=== PATIENT | male | born 1940 | race Hispanic/Latino ===

== ENCOUNTER 2018-02-28 05:59 | Day surgery (SDC) | payer MEDICARE ==
[2018-02-18 11:32] VITALS: BMI 24.6
[2018-02-28] MEDS ORDERED: cefTRIAXone 1 gm 1 GM/100 ML BAG IVPB ONE (07:39)
[2018-02-28] MEDS ORDERED: Lidocaine 2% Jelly (Uro-Jet) ONE (07:40)
[2018-02-28] MEDS ORDERED: Iohexol 240 (50 ml) ONE (07:40)
[2018-02-28] MEDS ORDERED: Midazolam 2 MG/2 ML VIAL ONE (07:51)
[2018-02-28] MEDS ORDERED: Propofol 10 mg/ml Inj (20 ML) ONE (07:52)
[2018-02-28] MEDS ORDERED: Succinylcholine Chloride 20 mg/ml Syr (5 ml) IV ONE (08:55)
--- NOTE | 2018-02-28 09:36 | PCM.SURG1 ---
Surgeon's Initial Post Op Note - Surgeon's Notes Surgeon: Anand Parker Scale Tank Operator: none Type of Anesthesia: General Endo Pre-Operative Diagnosis: Hematuria Operative Findings: Bladder tumors - BN floor, L BN, L Trigone. Enlarged prostate Post-Operative Diagnosis: same Operation Performed: cysto,. TUR-BN. TUR-BT. EUA Specimen/Specimens Removed: urine. BT. BN Estimated Blood Loss: EBL {In ML}: 10 Blood Products Given: N/A Post-Op Condition: Good Date of Surgery/Procedure: 02/28/18 Time of Surgery/Procedure: 09:25
[2018-02-28] MEDS: HYDROmorphone 0.5 mg/0.5 ml ISec IVP PRN ×2 (09:40→10:13)
[2018-03-01 00:12] VITALS: BP 136/67; PULSE 66; RESP 16; TEMP 97.8; O2SAT 100
--- NOTE | 2018-03-01 09:42 | RAD ---
Date of service: 02/28/2018 HISTORY: HEMATURIA COMPARISON: None available. FINDINGS: BOWEL: Greater right-sided mildly distended small bowel loops noted measuring between 3.2 and 3.4 cm in maximum dimension. Gas in nonspecific colon loops left and right. BONES: Thoraco lumbar spondylosis. Lumbosacral transitional elements suggested. Bilateral hip arthrosis. Inferior facet hypertrophic arthrosis. OTHER FINDINGS: Bilateral hemipelvic apparent phleboliths. Some mottled stool and mildly distended small bowel loops impede urolithiasis evaluation. IMPRESSION: No urolithiasis appreciated. The pelvic findings are believe most consistent with phleboliths. Right sided small bowel loops mildly distended-partial small-bowel obstruction versus focal small bowel ileus here are some considerations. Clinical correlation and follow-up is recommended. Comments: Study marked for PA review .
--- NOTE | 2018-03-06 01:34 | OP ---
PROCEDURE DATE: 02/28/2018 UROLOGY OPERATIVE REPORT PREOPERATIVE DIAGNOSES: 1. Hematuria. 2. Elevated prostate-specific antigen. POSTOPERATIVE DIAGNOSES: 1. Hematuria. 2. Bladder tumor. PROCEDURES: 1. Cystoscopy. 2. Transurethral resection of bladder tumor. 3. Transurethral resection of bladder neck. 4. Exam under anesthesia. PROCEDURE FOLLOWS: The patient was placed in lithotomy position. Perioperative antibiotics were administered. Anesthesia was provided by the anesthesiologist. A 22-Portuguese cystoscope sheath was introduced under direct vision. Urethra, prostate, and bladder were inspected with 30-degree and 70-degree lenses. FINDINGS: There was no stricture in the anterior urethra. There was evidence of lateral lobe prostatic hypertrophy as well as small middle lobe at the bladder neck. There was no stricture in the anterior urethra. There were no mucosal lesions within the prostatic urethra. There were multiple bladder tumors within the bladder. There was a large bladder tumor with papillary well-differentiated tumor involving the left floor of the bladder and trigone. Additionally, there was a bladder tumor at the bladder neck predominantly on the left. This too was a papillary tumor. The anterior wall of the bladder and lateral wall of the bladder demonstrated no tumor. The right ureteral orifice was normal in position and shape. The left ureteral orifice could not be identified and was obscured by the tumor. The cystoscope and sheath were removed. A 26-Portuguese continuous flow resectoscope sheath was introduced under direct vision using the visual obturator. The resectoscope was inserted. Resection of the bladder tumors was performed. The tumors were individually resected. The bladder neck was resected as well in order to resect the bladder tumor and also and in order to gain access to the tumor of the left trigone. The tumors were fully resected. The bases of the tumor were resected as well. Hemostasis was achieved after each section of resection. The resectoscope was reinserted. There was no bleeding noted. There was no residual tumor noted. The resectoscope and sheath were removed. Mar catheter was inserted. Bladder drainage was clear. Bladder irrigation was clear. Exam under anesthesia was performed. There was no abnormal pelvic mass, fixation or induration. Prostate was approximately 40 g in size and demonstrated mild firmness and mild induration, without fixation or nodularity. The patient was returned to supine position. The patient tolerated the procedure without complication. Ilene MD Keith
== END 2018-02-28 14:55 | disposition home or self-care (01) ==
LOC: C.SDS 05:59
PROVIDERS: ATTEND Urology
DX: R31.0 Gross hematuria (principal); D49.4 Neoplasm of unspecified behavior of bladder
CPT/HCPCS: 53899; 74018; 87086; 88104; 88305; A4322; C1758; J0696; J1170; J2405; J7040

== ENCOUNTER 2018-03-02 14:22 | Emergency (ER) | payer MEDICARE ==
[2018-03-02 14:22] VITALS: BMI 24.6
[2018-03-02 14:31] VITALS: PULSE 81; RESP 18; TEMP 97.6; O2SAT 100
--- NOTE | 2018-03-02 14:46 | C.PDOC ---
History Of Present Illness 78 y/o male pt presents to the ER to take out his urinary catheter. Pt reports he has an enlarged prostate and heavy hematuria. Pt received cystoscopy from Dr. Parker 2 days ago and was discharged with a urinary catheter. Pt was advised by Dr. Parker's to have his catheter removed today but the office is closed. Pt notes his urinary flow is clear. Associated sx is mild nausea and mild left lower abdominal discomfort. Pt denies fever, chills and vomiting. Time Seen by Provider: 03/02/18 14:36 Chief Complaint (Nursing): Male Genitourinary History Per: Patient History/Exam Limitations: no limitations Onset/Duration Of Symptoms: Days Current Symptoms Are (Timing): Still Present Past Medical History Reviewed: Historical Data, Nursing Documentation, Vital Signs Vital Signs: Last Vital Signs Temp 97.6 F 03/02/18 14:26 Pulse 81 03/02/18 14:26 Resp 18 03/02/18 14:26 BP 173/85 H 03/02/18 14:26 Pulse Ox 100 03/02/18 14:26 - Medical History PMH: Gall Bladder Disease Surgical History: Cholecystectomy - [facility] Procedures DILATION OF AMPULLA OF VATER, ENDO (10/28/15) EXCISION OF STOMACH, ENDO, DIAGN (10/28/15) ULTRASONOGRAPHY OF HEPATOBILIARY SYSTEM, ALL (10/28/15) Family History: States: Unknown Family Hx - Social History Hx Alcohol Use: No Hx Substance Use: No - Immunization History Hx Tetanus Toxoid Vaccination: No Hx Influenza Vaccination: No Hx Pneumococcal Vaccination: No Review Of Systems Constitutional: Positive for: Other (removal of urinary catheter ). Negative for: Fever, Chills Gastrointestinal: Positive for: Nausea, Abdominal Pain (lower). Negative for: Vomiting Physical Exam - Physical Exam Appears: Non-toxic, No Acute Distress Skin: Normal Color, Warm, Dry Head: Normacephalic Eye(s): bilateral: Normal Inspection, EOMI Chest: Symmetrical, No Deformity Cardiovascular: Rhythm Regular Respiratory: Normal Breath Sounds Gastrointestinal/Abdominal: Soft, No Tenderness, No Distention Back: No CVA Tenderness Extremity: Normal ROM (x4) Neurological/Psych: Oriented x3, Normal Speech, Normal Cognition Gait: Steady ED Course And Treatment O2 Sat by Pulse Oximetry: 100 (RA) Pulse Ox Interpretation: Normal Medical Decision Making Medical Decision Making: Impression: request removal of urinary catheter Plans: -- urinary catheter removal Disposition Counseled Patient/Family Regarding: Diagnosis, Need For Followup - Disposition Referrals: Ilene Parker MD [Staff Provider] - Disposition: HOME/ ROUTINE Disposition Time: 14:59 Condition: IMPROVED Instructions: Mar Catheter, Male Forms: [facility] [employer] (Norwegian) - Clinical Impression Clinical Impression: Encounter for Mar catheter removal - Scribe Statement The provider has reviewed the documentation as recorded by the Caesaribradha Ken Do Provider Attestation: All medical record entries made by the Caesaribe were at my direction and personally dictated by me. I have reviewed the chart and agree that the record accurately reflects my personal performance of the history, physical exam, medical decision making, and the department course for this patient. I have also personally directed, reviewed, and agree with the discharge instructions and disposition.
[2018-03-02 15:07] VITALS: BP 138/67
== END 2018-03-02 15:06 | disposition home or self-care (01) ==
LOC: C.ER 14:22
DX: Z46.6 Encounter for fitting and adjustment of urinary device (principal)

== ENCOUNTER 2018-07-17 07:52 | Outpatient (CLI) | payer MEDICARE | END 2018-07-17 07:53 | disposition home or self-care (01) | LOC: C.LAB 07:52 ==

== ENCOUNTER 2018-07-19 06:41 | Day surgery (SDC) | payer MEDICARE ==
[2018-07-15 12:32] VITALS: BMI 25.1
[2018-07-19 07:04] VITALS: RESP 18
[2018-07-19] MEDS ORDERED: Iohexol 240 (50 ml) ONE (09:11)
[2018-07-19] MEDS ORDERED: cefTRIAXone 1 gm 1 GM/100 ML BAG IVPB ONE (09:11)
[2018-07-19] MEDS ORDERED: Lidocaine 2% Jelly (Uro-Jet) ONE (09:11)
[2018-07-19] MEDS ORDERED: Midazolam 2 MG/2 ML VIAL ONE (09:19)
[2018-07-19] MEDS ORDERED: Propofol 10 mg/ml Inj (20 ML) ONE (09:23)
[2018-07-19] MEDS ORDERED: Lactated Ringer's 1,000 ML IV SCH (10:30)
[2018-07-19] MEDS ORDERED: HYDROmorphone 0.5 mg/0.5 ml ISec IVP PRN (10:30)
--- NOTE | 2018-07-19 10:32 | PCM.SURG1 ---
Surgeon's Initial Post Op Note - Surgeon's Notes Surgeon: Anand Parker Bunghole Borer: none Type of Anesthesia: General LMA Pre-Operative Diagnosis: bladder ca. prostate ca Operative Findings: bladder tumor Post-Operative Diagnosis: same Operation Performed: cysto. rtg pyelogram. tur-bt. tur-bn. eua Specimen/Specimens Removed: urine. janis almonte Estimated Blood Loss: EBL {In ML}: 0 Blood Products Given: N/A Post-Op Condition: Good Date of Surgery/Procedure: 07/19/18 Time of Surgery/Procedure: 10:15
[2018-07-19 11:45] VITALS: BP 112/67; PULSE 58; TEMP 97; O2SAT 100
--- NOTE | 2018-07-19 18:57 | RAD ---
Date of service: 07/19/2018 PROCEDURE: Intraoperative Fluoroscopy. HISTORY: BLADDER CA. FINDINGS: Fluoroscopic assistance was provided for retrograde. Please refer to the operative report from Dr. RAMIRES, HOP BOTTOM. Total fluoroscopic time (continuous mode) utilized during the procedure 4.8 seconds. Dose report: DLP [id number] (mGy/m2)
--- NOTE | 2018-07-21 05:58 | OP ---
PROCEDURE DATE: 07/19/2018 PREOPERATIVE DIAGNOSES: 1. History of bladder cancer. 2. History of prostate cancer. PROCEDURES: 1. Cystoscopy. 2. Right retrograde pyelogram. 3. Attempted left retrograde pyelogram. 4. Transurethral resection of bladder tumor. 5. Transurethral resection of bladder neck. 6. Exam under anesthesia. OPERATING SURGEON: Ilene Parker MD DESCRIPTION OF PROCEDURE: As follows: Procedure was performed under video endoscopic control as well as under fluoroscopic control. The patient received perioperative antibiotics. The genitalia prepped and draped in a sterile fashion. General anesthesia was administered. The patient was placed in lithotomy position. A 22-Malaysian cystoscope sheath was introduced under direct vision. Urethra, prostate, and bladder were inspected with 30-degree and 70-degree lenses. FINDINGS: There was mild stricture at the anterior urethra which was dilated by passing a cystoscope sheath. The prostatic urethra was nonocclusive. There was some asymmetry of the prostatic urethra. The left lobe was larger than the right lobe. There were no mucosal lesions within the prostatic urethra. There was abnormal mucosa which was erythematous at the bladder neck on the left, posterior lateral aspect of the bladder neck. The bladder was inspected. There was moderate bladder trabeculation. There was a solitary papillary bladder tumor on the posterior wall. The right ureteral orifices were normal in position and shape. The left ureteral orifice could not be identified. Multiple attempts at probing to the left ureteral orifice was performed using guidewire as well with the [place] catheter. However, the ureteral orifice could not be identified. There was abnormal mucosa located on the distal trigone towards the bladder neck. The occlusive tip retrograde pyelogram on the right side demonstrated no evidence of filling defect or obstruction. There was good drainage on the post drainage film. The cystoscope and sheath removed. A 26-Malaysian continuous flow resectoscope sheath was introduced under direct vision using the visual obturator. The resectoscope was inserted. The tumor was resected. The base of the tumor was resected as well and sent separately for pathologic examination. The abnormal mucosa on the distal left trigone and bladder neck was resected as well. Hemostasis was achieved using electrocautery. Hemostasis was complete. The resectoscope and sheath removed. A Mar catheter was inserted. Bladder drainage was clear. Exam under anesthesia was performed. There was no induration or mass palpable. There was mild fullness located in the area of the bladder floor on the left side. The patient was returned to supine position. The patient tolerated procedure without complication. The patient was transferred to recovery room in satisfactory condition. Ilene Parker MD
== END 2018-07-19 11:50 | disposition home or self-care (01) ==
LOC: C.SDS 06:41
PROVIDERS: ATTEND Urology
DX: N32.89 Other specified disorders of bladder (principal); N35.919 Unspecified urethral stricture, male, unspecified site; Z85.46 Personal history of malignant neoplasm of prostate; Z85.51 Personal history of malignant neoplasm of bladder; K21.9 Gastro-esophageal reflux disease without esophagitis; Z98.890 Other specified postprocedural states; Z90.49 Acquired absence of other specified parts of digestive tract; Z98.41 Cataract extraction status, right eye; Z79.899 Other long term (current) drug therapy; Z88.5 Allergy status to narcotic agent
CPT/HCPCS: 52005; 52224; 52500; 76000; 87086; 88104; 88305; J0696

== ENCOUNTER 2018-07-19 20:40 | Emergency (ER) | payer MEDICARE ==
[2018-07-19 20:40] VITALS: BMI 25.1
[2018-07-19 21:08] VITALS: BP 152/77; PULSE 74; RESP 18; TEMP 98; O2SAT 97
--- NOTE | 2018-07-19 21:19 | C.PDOC ---
History Of Present Illness 78-year-old male underwent a cystoscopy by Dr. Ilene Parker this morning and was discharged several hours ago. Patient presents to the ED for evaluation stating his leg bag is clogged with blood clots and is not draining. Patient denies fever, chills and does not offer any additional complaints at this time. Time Seen by Provider: 07/19/18 21:13 Chief Complaint (Nursing): Male Genitourinary History Per: Patient History/Exam Limitations: no limitations Onset/Duration Of Symptoms: Hrs Current Symptoms Are (Timing): Still Present Additional History Per: Patient Past Medical History Reviewed: Historical Data, Nursing Documentation, Vital Signs Vital Signs: Last Vital Signs Temp 98 F 07/19/18 21:03 Pulse 74 07/19/18 21:03 Resp 18 07/19/18 21:03 BP 152/77 H 07/19/18 21:03 Pulse Ox 97 07/19/18 21:03 - Medical History PMH: No Chronic Diseases, Gall Bladder Disease Denies: Chronic Kidney Disease Surgical History: Cholecystectomy, Endoscopy - [facility] Procedures DILATION OF AMPULLA OF VATER, ENDO (10/28/15) EXCISION OF STOMACH, ENDO, DIAGN (10/28/15) ULTRASONOGRAPHY OF HEPATOBILIARY SYSTEM, ALL (10/28/15) Family History: States: Unknown Family Hx - Social History Hx Alcohol Use: No Hx Substance Use: No - Immunization History Hx Tetanus Toxoid Vaccination: No Hx Influenza Vaccination: No Hx Pneumococcal Vaccination: No Review Of Systems Constitutional: Negative for: Fever, Chills Skin: Positive for: Other (leg bag not draining ) Physical Exam - Physical Exam Appears: Non-toxic, No Acute Distress Skin: Normal Color Male Genital: Other (leg bag with clots noted ) Extremity: Normal ROM Neurological/Psych: Normal Speech, Normal Cognition ED Course And Treatment O2 Sat by Pulse Oximetry: 97 (on RA) Pulse Ox Interpretation: Normal Progress Note: Patient was shown how to drain the bag. He has no complaints at this time and is stable for discharge. Disposition - Disposition Referrals: Ilene Parker MD [Staff Provider] - Disposition: HOME/ ROUTINE Disposition Time: 21:14 Condition: STABLE Additional Instructions: Follow up with PMD and Urologist within 1-2 days. Return to ED if feel worse. Instructions: How to Care for Your Mar Catheter, Male Forms: [employer] (Thai) - Clinical Impression Clinical Impression: Obstructed Mar catheter - PA / DIRECTOR TRANSPORTATION / Resident Statement MD/DO has reviewed & agrees with the documentation as recorded. - Scribe Statement The provider has reviewed the documentation as recorded by the Scribe (Lazara Tariq) All medical record entries made by the Scribe were at my direction and personally dictated by me. I have reviewed the chart and agree that the record accurately reflects my personal performance of the history, physical exam, medical decision making, and the department course for this patient. I have also personally directed, reviewed, and agree with the discharge instructions and disposition.
== END 2018-07-19 21:26 | disposition home or self-care (01) ==
LOC: C.ER 20:40
DX: T83.098A Other mechanical complication of other urinary catheter, initial encounter (principal); Y84.8 Other medical procedures as the cause of abnormal reaction of the patient, or of later complication, without mention of misadventure at the time of the procedure; Y92.89 Other specified places as the place of occurrence of the external cause